=== PATIENT | male | born 1960 | race Caucasian/White ===

== ENCOUNTER 2024-02-15 21:20 | Emergency (ER) | payer MEDICAID ==
[~2024-02-15] VITALS: Ht 180.3 cm; Wt 87.3 kg
[2024-02-15 21:37] VITALS: TEMP 98.3
[2024-02-16] MEDS: ACETAMINOPHEN 500 MG TABLET PO ONE (00:23)
[2024-02-16 00:51] VITALS: BP 137/78; PULSE 73; RESP 16; O2SAT 98
== END 2024-02-16 02:11 | disposition home or self-care (01) ==
LOC: EMS 21:20
DX: S06.0X0A Concussion without loss of consciousness, initial encounter (principal); S00.432A Contusion of left ear, initial encounter; M54.2 Cervicalgia; E78.00 Pure hypercholesterolemia, unspecified; W22.8XXA Striking against or struck by other objects, initial encounter; Y93.89 Activity, other specified; Y92.89 Other specified places as the place of occurrence of the external cause; Y99.8 Other external cause status
CPT/HCPCS: 70450; 72125; 99284